=== PATIENT | female | born 1935 | race Hispanic/Latino ===

== ENCOUNTER 2018-12-27 15:07 | Inpatient (IN) | payer OTHER, MEDICARE ==
[2018-12-23 03:39] VITALS: PULSE 81
[2018-12-27 16:36] VITALS: BMI 28.1
[2018-12-27 18:43] VITALS: PULSE 86; RESP 19
--- NOTE | 2018-12-28 00:02 | CP.PCM.HP ---
History of Present Illness - History of Present Illness History of Present Illness: PMD: Dr Marc Chief [id number]: Cough with palpitation The patient was see and examined in the TCU HPI: the Hx was obtained after review of the medical records. This is an 83 years old female transferred from the [facility] here to the [facility] for continued care and physical therapy. She was admitted at the [facility] on 12/23/18, diagnosed with atrial Fibrillation with rapid response, Chronic CHF and Atypical pneumonia. She was discharged on 12/27/18 to the [facility] to finish her Ceftriaxone and have Physical Therapy. She refers that she feels better. PMH: Arthritis (OA), Atrial Fibrillation, CAD, CHF, HTN, HLD; CVA with left sided weakness PSH: Cholecystectomy.Pacemaker placement SH: Never Smoked, No Alcohol use; No illegal drug use; Live with the family FH: States: No family Allergies: No Morphine Medication: Reviewed Present on Admission - Present on Admission Any Indicators Present on Admission: Yes History of DVT/PE: Yes History of Uncontrolled Diabetes: Yes Urinary Catheter: Yes Decubitus Ulcer Present: Yes Review of Systems - Review of Systems Review of Systems: Speaks only Ukrainian. Some what agitated stting that she does not want to remain in the hospital. She states no complaints. Past Patient History - Tetanus Immunizations Tetanus Immunization: Unknown - Past Medical History & Family History Past Medical History?: Yes - Past Social History Smoking Status: Never Smoked Chewing Tobacco Use: No Cigar Use: No Alcohol: None Drugs: Denies Home Situation {Lives}: With Family - CARDIAC Hx Atrial Fibrillation: Yes (hx) Hx Congestive Heart Failure: Yes Hx Hypercholesterolemia: Yes Hx Hypertension: Yes Hx Pacemaker: Yes - PULMONARY Hx Bronchitis: Yes - NEUROLOGICAL HX Cerebrovascular Accident: Yes (weak right arm) - HEENT Hx HEENT Problems: No - RENAL Hx Chronic Kidney Disease: No - ENDOCRINE/METABOLIC Hx Endocrine Disorders: No - HEMATOLOGICAL/ONCOLOGICAL Hx AIDS: No Hx Human Immunodeficiency Virus (HIV): No - INTEGUMENTARY Hx Dermatological Problems: No - MUSCULOSKELETAL/RHEUMATOLOGICAL Hx Arthritis: Yes (OA) Hx Falls: No - GASTROINTESTINAL Hx Gastrointestinal Disorders: Yes Other/Comment: Gall Bladder surgery - GENITOURINARY/GYNECOLOGICAL Hx Genitourinary Disorders: Yes Hx Incontinence: Yes Hx Urinary Tract Infection: Yes - PSYCHIATRIC Hx Substance Use: No - SURGICAL HISTORY Hx Cholecystectomy: Yes - ANESTHESIA Hx Anesthesia: Yes Hx Anesthesia Reactions: No Hx Malignant Hyperthermia: No Meds Allergies/Adverse Reactions: Allergies Allergy/AdvReac Type Severity Reaction Status Date / Time morphine AdvReac DIZZINESS Verified 12/27/18 18:56 Physical Exam - Constitutional Appears: No Acute Distress - Head Exam Head Exam: ATRAUMATIC, NORMAL INSPECTION, NORMOCEPHALIC - Eye Exam Eye Exam: EOMI, Normal appearance Pupil Exam: NORMAL ACCOMODATION, PERRL - ENT Exam ENT Exam: Mucous Membranes Dry, Normal Exam - Neck Exam Neck exam: Positive for: Full Rom, Normal Inspection - Respiratory Exam Respiratory Exam: Clear to Auscultation Bilateral. absent: Rales, Rhonchi, Wheezes - Cardiovascular Exam Cardiovascular Exam: Irregular Rhythm, +S1, +S2. absent: Gallop - GI/Abdominal Exam GI & Abdominal Exam: Normal Bowel Sounds, Soft. absent: Mass, Organomegaly, Tenderness - Rectal Exam Rectal Exam: Deferred - Extremities Exam Extremities exam: Positive for: full ROM, normal inspection - Back Exam Back exam: NORMAL INSPECTION. absent: CVA tenderness (L), CVA tenderness (R) - Neurological Exam Neurological exam: Alert, CN II-XII Intact, Oriented x3, Reflexes Normal - Psychiatric Exam Psychiatric exam: Normal Affect, Normal Mood - Skin Skin Exam: Dry, Normal Color, Warm Results - Vital Signs Recent Vital Signs: Last Vital Signs Temp Pulse 86 12/27/18 18:29 Resp 19 12/27/18 18:29 BP Pulse Ox Assessment & Plan - Assessment and Plan (Free Text) Plan: 83 years old female transferred from the [facility] here to the [facility] for continued care and physical therapy. She was admitted at the [facility] on 12/23/18, diagnosed with atrial Fibrillation with rapid response, Chronic CHF and Atypical pneumonia. She was discharged on 12/27/18 to the [facility] to finish her Ceftriaxone and have Physical Therapy. She refers that she feels better. #. A. Fib with rapid response now rate controlled - Metoprolol for rate control - Xarelto as anticoagulant #. Chronic CHF - Lasix - Metoprolol #. Atypical Pneumonia. patient received full course of Azithromycin at the [facility] - Ceftriaxone The patient decided that she did not want to remain in the hospital but wanted to go home. Her son who was at her side said that if she wants to go home that he will take alyce home as she lives with him. i explained to both the patient and her son that the treatment was not finished as yet and that Dr Marc wanted her to continue on the ceftriaxone for 8 more doses: That her not finishing the course could lead to worsening of the pneumonia, more SOB with fever and she should return to the ED if she does not feel well. The patient's son signed AMA at her request. This was within 1-2 hours of her being brought to the ICU Shane Bennett MD - Date & Time Date: 12/28/18 Time: 00:01
--- NOTE | 2018-12-28 02:28 | CP.PCM.DIS ---
Provider - Provider Date of Admission: 12/27/18 18:47 Attending physician: Michael Marc MD Consults: 12/27/18 18:32 Cardiology Consult Routine Comment: Consulting Provider: Rai Middleton Consulting Physician: Rai Middleton Reason for Consult: Atrial fibrillation Time Spent in preparation of Discharge (in minutes): 10 Diagnosis - Discharge Diagnosis (1) Atrial fibrillation with rapid ventricular response Status: Acute (2) Atypical pneumonia Status: Acute Hospital Course - Hospital Course Hospital Course: The patient was admitted to the [facility] on 12/27/18 and was stating that she did not want to remain in the hospital. her son was by her side. The patient was examined. It was explained to her with her son present that her PMD wanted her to continue and complete the Ceftriazone and that if not the Pneumonia could become worse with worsening of SOB, Coughing with sputum, even fever with sepsis.The poatoient was awake, alert, oriented The patient's son signed the paper to leave against medical advice. They were told to go to the nearest ED if any of the symptoms return Shane Bennett MD - Date & Time of H&P Date of H&P: 12/28/18 Time of H&P: 00:01 Discharge Exam - Head Exam Head Exam: ATRAUMATIC, NORMAL INSPECTION, NORMOCEPHALIC Discharge Plan - Follow Up Plan Condition: GOOD Disposition: AGAINST MEDICAL ADVICE
[2018-12-28] MEDS ORDERED: cefTRIAXone IV 1 gm in Dextros 50 ML BAG IVPB SCH (09:00)
[2018-12-28] MEDS ORDERED: Metoprolol Succinate 25 mg XL Tab PO SCH (09:00)
== END 2018-12-27 20:45 | disposition left against medical advice (07) | DRG 194 ==
LOC: H.TCU 18:47
PROVIDERS: ADMIT Internal Medicine; ATTEND Internal Medicine
DX: J18.9 Pneumonia, unspecified organism (principal); I69.354 Hemiplegia and hemiparesis following cerebral infarction affecting left non-dominant side; I48.91 Unspecified atrial fibrillation; I25.10 Atherosclerotic heart disease of native coronary artery without angina pectoris; I11.0 Hypertensive heart disease with heart failure; I50.9 Heart failure, unspecified; E78.5 Hyperlipidemia, unspecified; Z95.0 Presence of cardiac pacemaker; Z87.440 Personal history of urinary (tract) infections; Z88.6 Allergy status to analgesic agent